=== PATIENT | male | born 1950 | race Caucasian/White ===

== ENCOUNTER 2021-10-26 03:57 | Inpatient (IN) | payer MEDICARE, BC ==
[~2021-10-26] VITALS: Ht 188 cm; Wt 104.5 kg
--- NOTE | 2021-10-26 04:05 | PHYS DOC ---
Adult General Chief Complaint Chief Complaint: SHORTNESS OF BREATH HPI HPI Patient is a 70-year-old male, diagnosed with Covid 2 weeks ago who presents with shortness of breath that started at about 2:00 this morning, and woke him up from sleep. States that he woke up with a sharp, pain on the lateral side of his left chest and back, 6 out of 10, and worse with inspiration. States he never had anything like this before. Denies any recent traumas, travels, fevers, abdominal pain, nausea, vomiting, diarrhea. Denies any dysuria, hematuria, diarrhea or blood in the stool. Denies any known ill contacts. Review of Systems Review of Systems Review of systems otherwise unremarkable except noted HPI Physical Exam Physical Exam Constitutional: Well developed, well nourished, no acute distress, non-toxic appearance. [] HENT: Normocephalic, atraumatic, bilateral external ears normal, oropharynx moist, no oral exudates, nose normal. [] Eyes: conjunctiva normal, no discharge. [] Neck: Normal range of motion, no tenderness, supple, no stridor. [] Cardiovascular:Heart rate regular rhythm, no murmur [] Lungs & Thorax: Bilateral breath sounds clear to auscultation [] Abdomen: Bowel sounds normal, soft, no tenderness, no masses, no pulsatile masses. [] Skin: Warm, dry, no erythema, no rash. [] Back: No tenderness, no CVA tenderness. [] Extremities: No tenderness, no cyanosis, no clubbing, ROM intact, no edema. [] Neurologic: Alert and oriented X 3, normal motor function, normal sensory function, no focal deficits noted. [] Psychologic: Affect normal, judgement normal, mood normal. [] EKG EKG [] Radiology/Procedures Radiology/Procedures [] Heart Score C/O Chest Pain: No Risk Factors: Risk Factors: DM, Current or recent (<one month) smoker, HTN, HLP, family history of CAD, obesity. Risk Scores: Risk Factors: DM, Current or recent (<one month) smoker, HTN, HLP, family history of CAD, obesity. Course & Med Decision Making Course & Med Decision Making Patient is a 70-year-old male diagnosed with Covid 2 weeks ago who presents with shortness of breath Vital signs notable for tachycardia, and tachypnea. Physical exam noted above. EKG with a rate of 85, QRS of 94, QTc of 434, no STEMI. Given aspirin. Given pain medicine. CTA of the chest with no PE but multifocal pneumonia, most likely Covid as patient was Covid +2 weeks ago. Started on antibiotics, steroids, breathing treatment and oxygen. Rest of patient care handed off to day team for evaluation and admission to the hospital/finding of placement. [] Dragon Disclaimer Dragon Disclaimer This electronic medical record was generated, in whole or in part, using a voice recognition dictation system. Departure Departure: Impression: Primary Impression: Shortness of breath Additional Impression: Pneumonia due to COVID-19 virus Admitting Physician: Marguerite Youngblood Condition: STABLE Referrals: HERNAN ORDOÑEZ (PCP) Scripts Ascorbic Acid (VITAMIN C) 500 Mg Capsule.er 500 MG PO BID for covid 19 for 15 Days, #30 CAP.SR Prov: MARGUERITE YOUNGBLOOD MD 10/29/21 Dexamethasone (Decadron) 6 Mg Tablet 6 MG PO DAILY for covid 19 pneumonia for 7 Days, #7 TAB Prov: MARGUERITE YOUNGBLOOD MD 10/29/21 Levofloxacin (LEVOFLOXACIN) 750 Mg Tablet 1 TAB PO DAILY for pneumonia for 7 Days, #7 TAB Prov: MARGUERITE YOUNGBLOOD MD 10/29/21 Problem Qualifiers ALTHEA MORA MD Oct 26, 2021 04:05
[2021-10-26] MEDS ORDERED: IOHEXOL 350 MG/ML 100 ML VIAL. IV ONE (04:30)
[2021-10-26] MEDS ORDERED: CONTRAST GIVEN. MC PRN (04:30)
[2021-10-26] MEDS ORDERED: ASPIRIN CHEWABLE 81 MG TABLET. PO ONE (05:00)
[2021-10-26 05:01] LABS: BASO % 0 % (0-3); EOS # 0.1 x10^3/uL (0.0-0.7); EOS % 2 % (0-3); HEMATOCRIT 41.4 % (39.0-53.0); HEMOGLOBIN 14.1 g/dL (13.0-17.5); LYMPH # 1.2 x10^3/uL (1.0-4.8); LYMPH % 16 % (24-48); MEAN CORPUSCULAR HEMOGLOBIN 31 pg (25-35); MEAN CORPUSCULAR HGB CONC 34 g/dL (31-37); MEAN CORPUSCULAR VOLUME 92 fL (79-100); MONO % 13 % (0-9); NEUT # 5.2 x10^3uL (1.8-7.7); NEUT % 69 % (31-73); PLATELET COUNT 348 x10^3/uL (140-400); RED BLOOD COUNT 4.53 x10^6/uL (4.30-5.70); RED CELL DISTRIBUTION WIDTH 13.1 % (11.5-14.5); WHITE BLOOD COUNT 7.5 x10^3/uL (4.0-11.0)
[2021-10-26 05:12] LABS: CALCIUM 8.6 mg/dL (8.5-10.1); GFR 74.3; POTASSIUM 4.3 mmol/L (3.5-5.1)
[2021-10-26 05:17] LABS: ALBUMIN/GLOBULIN RATIO 0.6 (1.0-1.7); TOTAL BILIRUBIN 0.9 mg/dL (0.2-1.0); TOTAL PROTEIN 7.8 g/dL (6.4-8.2)
--- NOTE | 2021-10-26 05:17 | RAD ---
PQRS Compliance Statement: One or more of the following individualized dose reduction techniques were utilized for this examinat ion: 1. Automated exposure control 2. Adjustment of the mA and/or kV according to patient size 3. Use of iterative reconstruction technique CT CHEST WITH CONTRAST, PULMONARY ANGIOGRAM History: Reason: Covid 2 wks ago, SOB, cough, congestion Comparison: None. Technique: Helical CT of the chest was performed after the administration of 100 cc of Omnipaque 350 intravenous contrast according to PE protocol. Axial and coronal reconstructions were obtained. 3- D MIP images were constructed to better evaluate the pulmonary arteries. Findings: Pulmonary arteries are adequately opacified. There is no evidence of pulmonary embolism. There is no thoracic aortic dissection. There is mild mediastinal and bilateral hilar adenopathy, pro bably reactive. There is coronary artery disease. Cardiac size is normal, no pericardial effusion. There is no pleural effusion. The central airways are patent. There are multifocal groundglass and re ticular opacities scattered throughout the lungs. There is consolidation in the superior segment of t he right lower lobe. The visualized upper abdomen is unremarkable. The thoracic spine alignment is maintained. There is de generative spondylosis. There is old displaced fracture of the sternum. IMPRESSION: 1. There is no pulmonary embolus. 2. There are multifocal groundglass and reticular opacities throughout the lungs suggestive of Covid pneumonia. 3. There is mild mediastinal and bilateral hilar adenopathy, probably reactive. Recommend CT chest w ith contrast and reactive in 6 months. Electronically signed by: Tyshawn Fisher MD (10/26/2021 5:15 AM) [facility]
--- NOTE | 2021-10-26 05:19 | RAD ---
XR CHEST 1V Clinical Indication: Reason: SOB, cough, congestion, Covid 2 wks ago / Spl. Instructions: / History: Comparison: Two-view chest October 07, 2008. Findings: The cardiomediastinal silhouette is normal. There are moderate patchy airspace opacities throughout t he lungs. There is no pneumothorax. No pleural effusion is appreciated. No acute bone abnormality. IMPRESSION: There are moderate bilateral patchy airspace opacities. Considerations include pneumonia including Co vid pneumonia, pulmonary edema, or atelectasis. Electronically signed by: Tyshawn Fisher MD (10/26/2021 5:17 AM) [facility]
[2021-10-26] MEDS ORDERED: DEXAMETHASONE 4 MG TABLET PO ONE (06:00)
[2021-10-26] MEDS ORDERED: ACETAMINOPHEN/CODEINE 300/30MG 4TABLET STARTPACK. PO ONE (06:00)
[2021-10-26] MEDS ORDERED: IPRATRPIUM/ALBUTEROL 0.5/2.5MG 3 ML NEBU. NEB ONE (06:00)
[2021-10-26] MEDS ORDERED: ENOXAPARIN 40 MG/0.4 ML SYRINGE. SQ ONE (06:30)
--- NOTE | 2021-10-26 06:30 | EKG ---
[address] [address] Test Date: 2021-10-26 Test Time: 04:29:17 Pat Name: CRIS JOHNSON Department: Room: Gender: M Instrument Tech: JENNIFER : [id number] Requested By: ALTHEA MORA Order Number: [id number] Reading MD: Clarence Guerrier Measurements Intervals [place] Rate: 85 P: 22 VA: 202 QRS: -17 QRSD: 94 T: 45 QT: 360 QTc: 434 Interpretive Statements SINUS RHYTHM LEFTWARD AXIS Electronically Signed On 10-26-2021 12:35:26 [employer] by Clarence Guerrier
[2021-10-26] MEDS ORDERED: ONDANSETRON PF 4 MG/2 ML VIAL. IVP PRN (07:45)
[2021-10-26] MEDS ORDERED: ACETAMINOPHEN 325 MG TABLET PO PRN (07:45)
[2021-10-26] MEDS ORDERED: PANTOPRAZOLE 40 MG TABLET. PO ONE (09:15)
[2021-10-26 13:30] VITALS: BP 122/78
--- NOTE | 2021-10-26 14:30 | NUR ---
Nursing note PT Drew Vargas was admitted to the floor on Friday10/26/2021 at 13:30, with a diagnosis of Covid pneumonia and complains of waking up at 03:30am this morning with pain in his right lung when he breaths. He tested positive for Covid 14days ago. PT in bed, admission vitals and belongings documented. Tele monitor placed on PT, admission questions and assessments asked and documented. PT stated he takes just one medication at home for seizures. Verbalized pain with deep respirations. Bed low, call light within reach, PT verbalized no other needs, will continue to monitor.
[2021-10-26] MEDS ORDERED: LEVE100S8 PO (15:23)
[2021-10-26] MEDS: ENOXAPARIN 40 MG/0.4 ML SYRINGE. SQ SCH (17:36)
--- NOTE | 2021-10-26 18:04 | HP ---
DATE OF SERVICE: 10/26/2021 ADMIT DATE: 10/26/2021 HISTORY OF PRESENT ILLNESS: The patient is a 70-year-old male patient who was diagnosed with COVID 2 weeks ago, who presented to the Emergency Room with shortness of breath that started about 2 o'clock in the morning. It woke him up from sleep, stated that he woke up with a sharp pain in the lateral side of his left chest and back, rated as 6/10 and worse with inspiration and states he never had anything like this before. Denied any recent trauma, travel, fever or abdominal pain. He was extensively investigated in the Emergency Room, has had lab work as well as imaging studies. His lab work were mostly unremarkable. His chest x-ray showed moderate bilateral patchy airspace opacities, consideration includes pneumonia, including COVID pneumonia, pulmonary edema or atelectasis. The CT angio of the chest showed that the patient has no pulmonary emboli. There are multifocal ground-glass and reticular opacities throughout the lungs suggestive of COVID pneumonia. There is mild mediastinal and bilateral hilar lymphadenopathy, probably reactive. Recommend CT of chest with contrast in 6 months' time. He was treated with IV levofloxacin as well as dexamethasone and was admitted to continue with all his antibiotics as well as oxygen supplementation. PAST MEDICAL HISTORY: Significant for seizure disorder. PAST SURGICAL HISTORY: Significant for appendectomy, arthroscopic surgery of his left knee. He has also had colonoscopy. ALLERGIES: He has no known drug allergies. MEDICATIONS: He is currently on Keppra 500 mg twice a day. FAMILY HISTORY: He has one brother older, has diabetes, has 4 sisters, 3 older and one younger. One of the older sister has diabetes. His father at age of 71 because of bone cancer. Mother at age of 81 because of myocardial infarction. SOCIAL HISTORY: He is , has 2 daughters. He never smoked, drinks alcohol occasionally. Does not use any drugs. He is a retired environmental health officer. REVIEW OF SYSTEMS: As per history of present illness. PHYSICAL EXAMINATION: GENERAL: On arrival to the Emergency Room, he looked tachypneic, tachycardic, but there was no pallor, jaundice, cyanosis. No lymphadenopathy, no thyromegaly, no jugular venous distention. No lower limb edema. VITAL SIGNS: His heart rate was 111, blood pressure was 148/86, temperature was 98.7, respiratory rate 30, and oxygen saturation was 90% on room air. HEAD, EYES, EARS, NOSE AND THROAT: Normocephalic, atraumatic. NECK: Supple. HEART: Showed normal first and second heart sounds. No gallop or murmur. CHEST: Shows central trachea, equal bilateral chest expansion, air entry, vesicular breath sounds. I could not appreciate any crepitation or rhonchi anteriorly; however, he has bilateral crackles posteriorly, more so on the right than left. I could not appreciate any wheezing or rhonchi. ABDOMEN: Distended, soft, nontender. NEUROLOGIC: He is grossly intact. LABORATORY DATA: His lab work showed a white cell count of 7500, hemoglobin 14, hematocrit 41, MCV 92 and platelet count of 348,000 with normal manual differential. His chemistry showed a serum sodium of 138, potassium 4.3, chloride 102, bicarbonate 28, anion gap of 8, BUN 13, creatinine 1, estimated GFR was 74 mL per minute. His glucose was 107, lactic acid was 1.3, calcium was 8.6. Total bilirubin, AST, ALT, alkaline phosphatase were normal. His troponin high sensitivity was 6. C-reactive protein was 83.3. Total protein was 7.8, albumin 3. His prothrombin time, INR and APTT normal. ASSESSMENT AND PLAN: 1. In summary, this is a 70-year-old male patient who was admitted with COVID-19 pneumonia. 2. Possible superimposed community-acquired pneumonia, acute hypoxic respiratory failure. 3. Other medical problems include seizure disorder. Plan is obviously to continue with IV antibiotic in the form of Levaquin. Continue with Keppra. Continue with Lovenox for DVT prophylaxis. Continue with dexamethasone. TACO/KATHRINE DR: Linda TID: [id number]
[2021-10-26 19:51] VITALS: BP 132/84
[2021-10-26] MEDS: levETIRAcetam 500 MG TABLET PO SCH (21:00)
[2021-10-26 23:18] VITALS: BP 117/75
[2021-10-27 06:14] VITALS: BP 145/91
[2021-10-27] MEDS: levETIRAcetam 500 MG TABLET PO SCH ×2 (09:32→21:00)
[2021-10-27] MEDS: ZINC SULFATE 220 MG CAPSULE. PO SCH (09:32)
[2021-10-27] MEDS: LACTOBACILLUS RHAMNOSUS GG 1 CAPSULE. PO SCH ×2 (09:33→21:00)
[2021-10-27] MEDS: DEXAMETHASONE SOD PHOS 4 MG/ML VIAL. IVP SCH (09:33)
[2021-10-27] MEDS: ASCORBIC ACID 1,000 MG TABLET PO SCH (09:35)
[2021-10-27 11:06] VITALS: BP 136/85
[2021-10-27 15:15] VITALS: BP 124/86
[2021-10-27] MEDS: ENOXAPARIN 40 MG/0.4 ML SYRINGE. SQ SCH (18:16)
[2021-10-27 19:30] VITALS: BP 128/81
--- NOTE | 2021-10-27 21:22 | PN ---
DATE: 10/27/2021 SUBJECTIVE: The patient is resting, slightly propped up in bed, in no apparent respiratory distress, seemed to be a little bit more anxious today than yesterday. However, he continued to maintain his oxygen saturation at 94% on room air and did complain of right sided pleuritic chest pain, which is consistent with the finding on his clinical exam before. PHYSICAL EXAMINATION: GENERAL: When I examined him, he looked well with no pallor, jaundice, or cyanosis, no lymphadenopathy, no thyromegaly, no jugular venous distention. No lower limb edema. VITAL SIGNS: His heart rate was 90, blood pressure was 136/85, temperature 97.2, respiratory rate was 24 and oxygen saturation was 94% on room air. HEAD, EYES, EARS, NOSE AND THROAT: Normocephalic, atraumatic. NECK: Supple. HEART: Showed normal first and second heart sounds. No gallop, rub or murmur. CHEST: Shows central trachea, equal bilateral chest expansion, air entry, vesicular breath sounds with crepitation mostly on the left side posteriorly. ABDOMEN: Soft, nontender. NEUROLOGIC: He was grossly intact. LABORATORY DATA: He has no lab work done this morning. ASSESSMENT: 1. Acute hypoxic respiratory failure. 2. COVID-19 pneumonia. 3. Possible superimposed community-acquired pneumonia. 4. Seizure disorder. PLAN: To continue the IV antibiotic in the form of Levaquin. Continue with Keppra. Continue with Lovenox DVT. Continue with dexamethasone. SHAQUILLE DR: Linda TID: [id number]
[2021-10-27 23:21] VITALS: BP 126/81
[2021-10-28 05:27] VITALS: BP 126/82
[2021-10-28 07:41] LABS: HEMATOCRIT 37.4 % (39.0-53.0); HEMOGLOBIN 12.8 g/dL (13.0-17.5); RED BLOOD COUNT 4.06 x10^6/uL (4.30-5.70); RED CELL DISTRIBUTION WIDTH 13.1 % (11.5-14.5); WHITE BLOOD COUNT 5.5 x10^3/uL (4.0-11.0)
[2021-10-28 07:58] LABS: ALBUMIN 2.8 g/dL (3.4-5.0); ALBUMIN/GLOBULIN RATIO 0.6 (1.0-1.7); CALCIUM 8.3 mg/dL (8.5-10.1); GFR 74.3; POTASSIUM 4.1 mmol/L (3.5-5.1); TOTAL BILIRUBIN 0.6 mg/dL (0.2-1.0); TOTAL PROTEIN 7.5 g/dL (6.4-8.2)
[2021-10-28] MEDS: LACTOBACILLUS RHAMNOSUS GG 1 CAPSULE. PO SCH ×2 (09:13→21:32)
[2021-10-28] MEDS: levETIRAcetam 500 MG TABLET PO SCH ×2 (09:13→21:32)
[2021-10-28] MEDS: ZINC SULFATE 220 MG CAPSULE. PO SCH (09:13)
[2021-10-28] MEDS: ASCORBIC ACID 1,000 MG TABLET PO SCH (09:13)
[2021-10-28] MEDS: DEXAMETHASONE SOD PHOS 4 MG/ML VIAL. IVP SCH (09:14)
[2021-10-28] MEDS ORDERED: DOCUSATE SODIUM 100 MG CAPSULE PO PRN (09:30)
[2021-10-28 11:09] VITALS: BP 121/77
[2021-10-28] MEDS ORDERED: MAGNESIUM CITRATE 296 ML SOLUTION. PO PRN (13:00)
[2021-10-28 15:40] LABS: BASO % 0 % (0-3); EOS % 0 % (0-3); HEMATOCRIT 39.3 % (39.0-53.0); HEMOGLOBIN 13.4 g/dL (13.0-17.5); LYMPH # 0.7 x10^3/uL (1.0-4.8); LYMPH % 14 % (24-48); MEAN CORPUSCULAR HEMOGLOBIN 31 pg (25-35); MEAN CORPUSCULAR HGB CONC 34 g/dL (31-37); MEAN CORPUSCULAR VOLUME 92 fL (79-100); MONO # 0.2 x10^3/uL (0.0-1.1); MONO % 4 % (0-9); NEUT % 81 % (31-73); PLATELET COUNT 355 x10^3/uL (140-400); RED BLOOD COUNT 4.26 x10^6/uL (4.30-5.70); RED CELL DISTRIBUTION WIDTH 13.2 % (11.5-14.5); WHITE BLOOD COUNT 4.9 x10^3/uL (4.0-11.0)
[2021-10-28 16:09] LABS: ALBUMIN 2.9 g/dL (3.4-5.0); ALBUMIN/GLOBULIN RATIO 0.6 (1.0-1.7); CALCIUM 8.6 mg/dL (8.5-10.1); CREATININE 1.1 mg/dL (0.7-1.3); GFR 66.6; POTASSIUM 4.4 mmol/L (3.5-5.1); TOTAL BILIRUBIN 0.4 mg/dL (0.2-1.0); TOTAL PROTEIN 7.7 g/dL (6.4-8.2)
[2021-10-28 16:15] VITALS: BP 151/86
[2021-10-28] MEDS: ENOXAPARIN 40 MG/0.4 ML SYRINGE. SQ SCH (18:28)
[2021-10-28 20:35] VITALS: BP 133/88
--- NOTE | 2021-10-28 22:00 | PN ---
DATE: 10/28/2021 SUBJECTIVE: The patient is resting, slightly propped up in bed, in no apparent respiratory distress. He has continued to complain of cough, mostly dry. His oxygen saturation is trending down, although continued to be on room air. He is maintaining his oxygen saturation at 93-94% on room air. Yesterday, he was doing 96-97% on room air. PHYSICAL EXAMINATION: GENERAL: When I examined him, he looked well with no pallor, jaundice, cyanosis or thyromegaly. No jugular venous distention. No limb edema. VITAL SIGNS: His heart rate was 72, blood pressure is 121/77, temperature 97.8, respiratory rate was 18 and oxygen saturation was 95% on room air. HEAD, EYES, EARS, NOSE, AND THROAT: Normocephalic, atraumatic. NECK: Supple. HEART: Showed normal first and second heart sounds. No gallop or murmur. CHEST: Shows central trachea, equal bilateral expansion, air entry, vesicular breath sounds with crepitation mostly on the right side posteriorly. ABDOMEN: Distended, soft, nontender, no guarding or rigidity. No organomegaly. All hernial orifice intact. Bowel sounds normal. NEUROLOGIC: He was grossly intact. His intake was 1570, no output was recorded. LABORATORY DATA: Showed a white cell count 5500, hemoglobin 13, hematocrit 37, MCV 92 and platelet count 354,000. Serum sodium 140, potassium 4.1, chloride 104, bicarbonate 27, anion gap of 9, BUN 17, creatinine 1, estimated GFR was 74 mL per minute, his glucose was 87, calcium was 8.3. Total bilirubin and alkaline phosphatase are normal. AST, ALT slightly elevated, trending down. ASSESSMENT: 1. COVID-19 pneumonia, possible superimposed community-acquired pneumonia. 2. Acute hypoxic respiratory failure, although the patient is now on room air, maintaining his oxygen saturation 94%. 3. Seizure disorder. PLAN: To continue with IV antibiotic in the form of Levaquin. Continue with Keppra. Continue with Lovenox. Continue with dexamethasone. I will repeat all his labs again and chest x-ray tomorrow and will do a 6-minute walk and decide the further management accordingly. AMAYA DR: Linda TID: [id number]
[2021-10-29 06:34] VITALS: BP 138/80
--- NOTE | 2021-10-29 08:17 | RAD ---
EXAMINATION: Chest radiograph. VIEWS: 1 COMPARISON: 10/26/2021 INDICATION:70 years, Male, worsening hypoxemia. FINDINGS: Normal cardiomediastinal silhouette. Essentially unchanged diffuse bilateral pulmonary infiltrates. N o pleural effusion or pneumothorax. No acute osseous process. IMPRESSION: Essentially unchanged diffuse bilateral pulmonary infiltrates. Electronically signed by: Sebastien Cheng MD (10/29/2021 8:14 AM) [id number]
[2021-10-29] MEDS: levETIRAcetam 500 MG TABLET PO SCH (08:32)
[2021-10-29] MEDS: LACTOBACILLUS RHAMNOSUS GG 1 CAPSULE. PO SCH (08:32)
[2021-10-29] MEDS: ZINC SULFATE 220 MG CAPSULE. PO SCH (08:32)
[2021-10-29] MEDS: DEXAMETHASONE SOD PHOS 4 MG/ML VIAL. IVP SCH (08:32)
[2021-10-29] MEDS: ASCORBIC ACID 1,000 MG TABLET PO SCH (08:33)
[2021-10-29 10:55] VITALS: BP 123/74
[2021-10-29] MEDS ORDERED: DEXA6TAB6 PO (14:26)
[2021-10-29] MEDS ORDERED: ASCO500C PO (14:26)
[2021-10-29] MEDS ORDERED: LEVO750T5 PO (14:26)
--- NOTE | 2021-10-29 15:35 | NUR ---
discharge note Pt discharged at 1535 via ambulation accompanied by family member.
== END 2021-10-29 15:40 | disposition home or self-care (01) | DRG 177 ==
LOC: ER 03:57 → ER HOLD 07:31 → 1 SOUTH 13:10
PROVIDERS: ADMIT Internal Medicine; ATTEND Internal Medicine
PROC: 5A09357 Assistance with Respiratory Ventilation, Less than 24 Consecutive Hours, Continuous Positive Airway Pressure (ICD-10-PCS; principal; 2021-10-26)
DX: U07.1 COVID-19 (principal); J96.01 Acute respiratory failure with hypoxia; J12.82 Pneumonia due to coronavirus disease 2019; J18.9 Pneumonia, unspecified organism; J81.1 Chronic pulmonary edema; J98.11 Atelectasis; G40.909 Epilepsy, unspecified, not intractable, without status epilepticus; Z82.49 Family history of ischemic heart disease and other diseases of the circulatory system; Z83.3 Family history of diabetes mellitus
CPT/HCPCS: 36415; 71045; 71275; 80053; 83605; 84484; 85025; 85027; 85610; 85730; 86140; 93005; 94618; 94640; 94660; 96365; 96372; 96375; G0238; J1100; J1650; J1956; J3010; J8540; Q9967; 99285-25

== ENCOUNTER → 2021-11-19 | Outpatient (CLI) | payer MEDICARE, BC ==
[2021-10-29 10:55] VITALS: BP 123/74
[~2021-11-19] MED LIST: ASCO500C PO; DEXA6TAB6 PO; LEVE100S8 PO; LEVO750T5 PO
--- NOTE | 2021-11-19 11:57 | RAD ---
EXAM: Left lower extremity venous Doppler sonogram. HISTORY: Pain and swelling. TECHNIQUE: Reddy scale and color Doppler sonographic evaluation of the left lower extremity veins with spectral waveform analysis was performed. FINDINGS: There is occlusive deep venous thrombosis involving the superficial femoral, popliteal and posterior tibial veins. There is normal color flow, normal compressibility and there are normal spect ral waveforms in the common femoral and greater saphenous vein. IMPRESSION: Left lower extremity deep venous thrombosis involving superficial femoral, popliteal and posterior tibial veins. These findings were communicated to the referring physician office by the applications administrator at the time of the exam. Electronically signed by: Bettie Wan MD (11/19/2021 11:55 AM) [id number]
== END ==
LOC: US 11:24
PROVIDERS: ATTEND Family Medicine
DX: I82.412 Acute embolism and thrombosis of left femoral vein (principal)
CPT/HCPCS: 93971

== ENCOUNTER → 2021-11-20 | Outpatient (CLI) | payer MEDICARE, BC ==
[2021-10-29 10:55] VITALS: BP 123/74
[~2021-11-20] MED LIST changes: +IOHEXOL 350 MG/ML 100 ML VIAL. IV ONE
--- NOTE | 2021-11-20 10:32 | RAD ---
Ct angiography chest 11/20/2021 9:53 AM Indication: SOA RECENT HISTORY OF COVID Technique: Multiple contiguous axial images were obtained through the chest after administration of i ntravenous iodinated contrast. Coronal, sagittal, and 3-D MIP reformations were created. Comparison: CT of the chest October 26, 2021 Findings: Exam is positive for acute pulmonary embolism involving the right main pulmonary artery extending int o lobar and segmental arteries in the right lower lobe. Overall clot burden is moderate. No overt he art strain is identified. Mediastinal adenopathy persists, most likely reactive given history of rece nt code pneumonia. No pneumothorax is seen. There is improved but persistent groundglass infiltrates persist throughout the bilateral lungs. Areas of basilar atelectasis noted. No significant effusion i s seen. Heart size is normal. No acute abnormalities of the upper abdomen are identified. Impression: 1.Exam is positive for acute pulmonary embolism as described removed 2. Improved persisting groundglass infiltrates and mediastinal adenopathy the interim since compariso n CT Findings called to ordering physician's office 10:[address] DOSING PQRS STATEMENT: One or more of the following individualized dose reduction techniques were utilized for this examinat ion: 1. Automated exposure control 2. Adjustment of the mA and/or kV according to patient size 3. Use of iterative reconstruction technique Electronically signed by: Fernando Whitaker MD (11/20/2021 10:30 AM) [place] [id number]
== END ==
LOC: CT 09:27
PROVIDERS: ATTEND Family Medicine
DX: I26.99 Other pulmonary embolism without acute cor pulmonale (principal); R59.0 Localized enlarged lymph nodes; R91.8 Other nonspecific abnormal finding of lung field; J98.11 Atelectasis; Z86.16 Personal history of COVID-19
CPT/HCPCS: 71275; Q9967